=== PATIENT | female | born 1970 | race Caucasian/White ===

== ENCOUNTER 2017-03-18 17:24 | Emergency (ER) | payer SELFPAY ==
[2017-03-18 19:47] LABS: BASOPHIL % 0.4 % (0-2); PLATELET COUNT 284 x10^3mcL (130-400)
[2017-03-18 19:50] LABS: microscopic required? NO
[2017-03-18 20:25] LABS: CALCIUM 8.5 mg/dL (8.5-10.1); CHLORIDE SERUM 102 mmol/L (98-107); CREATININE SERUM 0.9 mg/dL (0.6-1.0); GFR1 > 60 mL/min; GLUCOSE SERUM 127 mg/dL (74-106); POTASSIUM SERUM 3.2 mmol/L (3.5-5.1); SODIUM SERUM 137 mmol/L (136-145)
[2017-03-18 20:29] LABS: ALBUMIN 3.5 g/dL (3.4-5.0); ALKALINE PHOSPHATASE 66 U/L (46-116); ALT/SGPT 41 U/L (14-59); AMYLASE 42 U/L (25-115); AST/SGOT 29 U/L (15-37); BILIRUBIN TOTAL 0.13 mg/dL (0.20-1.00); CHOLESTEROL 145 mg/dL (<200); HDL CHOLESTEROL 59 mg/dL (40-60); LIPASE 179 IU/L (73-393); T4(THYROXINE) 8.1 ug/dL (4.7-13.3); TOTAL PROTEIN, SERUM 7.3 g/dL (6.4-8.2)
[2017-03-18 20:45] LABS: UA SPECIFIC GRAVITY 1.015 (1.005-1.035); urine erythrocyte NEGATIVE (NEGATIVE)
[2017-03-18 21:00] LABS: AMPHETAMINE QUAL UR NONE DETECTED (NEG <=1000)
[2017-03-18] MEDS ORDERED: LISINOPRIL10 MG PO (21:12)
[2017-03-18] MEDS ORDERED: HYDROCHLOROTHIA25 MG PO (21:12)
[2017-03-18 21:53] LABS: T3 TOTAL 0.87 ng/mL
[2017-03-18 21:54] LABS: FREE T4 0.93 ng/dL (0.76-1.46); FREE THYROXINE INDEX 2.5 ug/dL (1.4-4.5); T4(THYROXINE) 7.9 ug/dL (4.7-13.3)
[2017-03-18 21:56] LABS: CHOLESTEROL/HDL RATIO 2.4; MAGNESIUM 2.2 mg/dL (1.8-2.4); PHOSPHOROUS 3.3 mg/dL (2.5-4.9)
[2017-03-18 22:29] VITALS: BP 201/106
== END 2017-03-18 22:26 | disposition left against medical advice (07) ==
LOC: ED 17:24 → DU 21:05 → ED 21:05
PROVIDERS: Emergency Medicine; Family Medicine
DX: J98.01 Acute bronchospasm (principal); D72.819 Decreased white blood cell count, unspecified; E87.3 Alkalosis; I10 Essential (primary) hypertension; I44.7 Left bundle-branch block, unspecified; I51.7 Cardiomegaly; E66.9 Obesity, unspecified
CPT/HCPCS: 36600; 82962; 83880; 84439; 87804; J2930; J7030; J7613; J7644